=== PATIENT | female | born 1930 | race Native Hawaiian/Other Pacific Islander ===

== ENCOUNTER 2016-09-26 13:13 | Outpatient (CLI) | payer OTHER ==
[~2016-09-26 13:13] MED LIST: AMBIEN5 MG PO; EZET10TA13 OR; HYDROCHLOROT12.5 M1 PO; LABETALOL100 MG OR; LESCOL20 MG OR; LISI20TA11 PO; LOVA20TA PO; OMEP40CA PO; PANT40TA PO; PREDNICARBATE TOP; PRILOSEC OTC20 MG OR; ZOLP10TA2 PO
[2016-09-26 13:58] LABS: PLATELET COUNT 292 K/uL (152-353)
[2016-09-26 14:39] LABS: POTASSIUM 4.6 mmol/L (3.6-5.2); SODIUM 136 mmol/L (136-145)
== END 2016-09-26 19:31 | disposition home or self-care (01) ==
LOC: LAB 13:13
PROVIDERS: Nurse Practitioner Family
DX: E78.4 Other hyperlipidemia (principal); I10 Essential (primary) hypertension; Z79.899 Other long term (current) drug therapy; Z51.81 Encounter for therapeutic drug level monitoring
CPT/HCPCS: 80053; 80061; 83036; 84439; 84443; 85027

== ENCOUNTER 2017-02-18 14:08 | Outpatient (CLI) | payer OTHER ==
[2017-02-18 14:35] LABS: PLATELET COUNT 299 K/uL (152-353)
[2017-02-18 15:20] LABS: POTASSIUM 4.9 mmol/L (3.6-5.2)
== END 2017-02-18 15:10 | disposition home or self-care (01) ==
LOC: LAB 14:08
PROVIDERS: Nurse Practitioner Family
DX: I10 Essential (primary) hypertension (principal); E78.4 Other hyperlipidemia; E55.9 Vitamin D deficiency, unspecified; R53.83 Other fatigue; R53.81 Other malaise; Z79.899 Other long term (current) drug therapy; Z51.81 Encounter for therapeutic drug level monitoring
CPT/HCPCS: 80053; 80061; 82306; 82607; 83036; 84436; 84443; 85027

== ENCOUNTER 2017-09-09 12:50 | Outpatient (CLI) | payer OTHER ==
[2017-09-09 13:25] LABS: PLATELET COUNT 315 K/uL (152-353)
[2017-09-09 13:49] LABS: POTASSIUM 4.8 mmol/L (3.6-5.2)
== END 2017-09-10 04:43 | disposition home or self-care (01) ==
LOC: LAB 12:50
PROVIDERS: Nurse Practitioner Family
DX: E78.4 Other hyperlipidemia (principal); I10 Essential (primary) hypertension; G47.09 Other insomnia; Z79.899 Other long term (current) drug therapy; Z51.81 Encounter for therapeutic drug level monitoring; R53.83 Other fatigue; R53.81 Other malaise
CPT/HCPCS: 80053; 80061; 83036; 84436; 84443; 85027

== ENCOUNTER 2017-10-22 10:24 | Outpatient (CLI) | payer OTHER | END 2017-10-22 19:17 | disposition home or self-care (01) | LOC: RESP 10:24 | DX: I25.10 Atherosclerotic heart disease of native coronary artery without angina pectoris (principal); I10 Essential (primary) hypertension; R60.0 Localized edema | CPT/HCPCS: 93306 ==

== ENCOUNTER 2017-11-26 07:07 | Outpatient (CLI) | payer OTHER ==
[~2017-11-26] VITALS: Ht 154.9 cm; Wt 80.7 kg
== END 2017-11-26 22:03 | disposition home or self-care (01) ==
LOC: NM 07:07
DX: R07.89 Other chest pain (principal)
CPT/HCPCS: A9500; J2785

== ENCOUNTER 2017-11-30 14:24 | Observation (INO) | payer OTHER ==
[~2017-11-30] VITALS: Ht 162.6 cm; Wt 84.4 kg
--- NOTE | 2017-11-30 14:35 | NUR ---
Pt. ADMITTTED TO ROOM 1111. C/O FLANK AND ABB.
[2017-11-30 15:53] LABS: PLATELET COUNT 307 K/uL (152-353)
[2017-11-30 16:22] VITALS: BP 158/76; TEMP 98.4; Ht 162.6 cm; Wt 84.4 kg
[2017-11-30 16:22] LABS: POTASSIUM 4.2 mmol/L (3.6-5.2); SODIUM 133 mmol/L (136-145)
[2017-11-30 17:03] LABS: PARTIAL THROMBOPLASTIN TIME 25.6 SECONDS (24.5-33.6)
[2017-11-30 19:51] VITALS: BP 151/50; TEMP 98
[2017-11-30 23:57] VITALS: BP 143/61; TEMP 98.9
[2017-12-01 04:00] VITALS: BP 111/63; TEMP 98.1
[2017-12-01 08:25] VITALS: BP 148/66; TEMP 98.5
--- NOTE | 2017-12-01 09:35 | NUR ---
IV D/C'D WITH TIP INTACT PRESSURE DRESSING APPLIED. D/C INSTRUCTIONS GIVEN. PT VERBALIZED UNDERSTANDING.PT D/C'D HOME VIA WC IN STABLE COND.
== END 2017-12-01 09:35 | disposition home or self-care (01) ==
LOC: MED/SURG 14:24
PROVIDERS: ADMIT Emergency Medicine
DX: R07.89 Other chest pain (principal); I10 Essential (primary) hypertension; K21.9 Gastro-esophageal reflux disease without esophagitis; M81.8 Other osteoporosis without current pathological fracture; S29.011A Strain of muscle and tendon of front wall of thorax, initial encounter; X58.XXXA Exposure to other specified factors, initial encounter; Y93.89 Activity, other specified; Y92.89 Other specified places as the place of occurrence of the external cause; R10.9 Unspecified abdominal pain
CPT/HCPCS: 36415; 36591; 80053; 81000; 82550; 82553; 83615; 84484; 85027; 85610; 85730; 93005; 99220; G0378; G0379

== ENCOUNTER 2018-12-21 11:13 | Outpatient (CLI) | payer OTHER | END 2018-12-21 21:18 | disposition home or self-care (01) | LOC: LABW 11:13 | DX: K64.0 First degree hemorrhoids (principal) | CPT/HCPCS: 82272 ==

== ENCOUNTER 2020-05-15 13:11 | Outpatient (CLI) | payer OTHER | END 2020-05-16 00:43 | disposition home or self-care (01) | LOC: CT 13:11 | DX: M54.5 Low back pain (principal); M54.16 Radiculopathy, lumbar region; M51.37 Other intervertebral disc degeneration, lumbosacral region ==

== ENCOUNTER 2020-07-26 08:01 | Outpatient (CLI) | payer OTHER | END 2020-07-26 19:18 | disposition home or self-care (01) | LOC: NM 08:01 | PROVIDERS: ATTEND Internal Medicine Cardiovascular Disease | DX: R07.89 Other chest pain (principal) | CPT/HCPCS: A9500; J2785 ==

== ENCOUNTER 2020-12-07 12:38 | Outpatient (CLI) | payer OTHER | END 2020-12-07 21:49 | disposition home or self-care (01) | LOC: MAMMO 12:38 | PROVIDERS: ATTEND Registered Nurse | DX: Z12.31 Encounter for screening mammogram for malignant neoplasm of breast (principal) ==

== ENCOUNTER 2021-10-02 08:39 | Outpatient (CLI) | payer OTHER | END 2021-10-02 19:09 | disposition home or self-care (01) | LOC: RESP 08:39 | PROVIDERS: ATTEND Internal Medicine Cardiovascular Disease | DX: I10 Essential (primary) hypertension (principal) ==